=== PATIENT | male | born 1990 ===

== ENCOUNTER 2020-04-21 12:10 | Emergency (ER) | payer OTHER ==
[~2020-04-21] VITALS: Ht 190.5 cm; Wt 127.0 kg
[2020-04-21 12:10] VITALS: BP_SYST 141
--- NOTE | 2020-04-21 12:10 | NUR ---
TRIAGED IN OUTSIDE TRIAGE TENT, WILL ASSUME CARE
--- NOTE | 2020-04-21 12:16 | NUR ---
PT STATES LEFT FOOT INJURY WHILE MOUNTAIN BIKING LAST NIGHT, ++BRUISING AND SWELLING NOTED.
--- NOTE | 2020-04-21 12:22 | NUR ---
BROUGHT INTO FAST TRACK, FOOT ELEVATED AND ICE PACKS APPLIED.
--- NOTE | 2020-04-21 12:28 | NUR ---
TAKEN TO RADIOLOGY VIA WHEELCHAIR.
--- NOTE | 2020-04-21 13:35 | NUR ---
SPLINT BEING APPLIED, PT TOLERATING IT WELL
--- NOTE | 2020-04-21 13:45 | NUR ---
Patient given written and verbal discharge instructions and verbalizes understanding. ER MD discussed with patient the results and treatment provided. Patient in stable condition. ID arm band removed. Rx of NORCO given. Patient educated on pain management and to follow up with PMD. Pain Scale 0/10. Opportunity for questions provided and answered. Medication side effect fact sheet provided.
== END 2020-04-21 13:45 | disposition home or self-care (01) ==
LOC: SED 12:10
DX: S92.322A Displaced fracture of second metatarsal bone, left foot, initial encounter for closed fracture (principal); V19.9XXA Pedal cyclist (driver) (passenger) injured in unspecified traffic accident, initial encounter; Y93.89 Activity, other specified; Y92.89 Other specified places as the place of occurrence of the external cause; Y99.8 Other external cause status
CPT/HCPCS: 73590-TC; 99284